=== PATIENT | male | born 1985 ===

== ENCOUNTER 2018-01-29 12:28 | Emergency (ER) | payer OTHER ==
[2018-01-29 12:31] VITALS: BP 131/81; PULSE 119; RESP 20; TEMP 98.4; O2SAT 99
--- NOTE | 2018-01-29 13:14 | ED PDOC ---
Lower Extremity Pain/Injury Time Seen by Provider: 01/29/18 12:49 Chief Complaint (Nursing): Lower Extremity Problem/Injury Chief Complaint (Provider): right ankle pain History Per: Patient History/Exam Limitations: no limitations Onset/Duration Of Symptoms: Hrs (2) Current Symptoms Are (Timing): Still Present Pain Scale Rating Of: 5 Additional Complaint(s): 32 yo ,m, no significant PMhx presents to ED c/o right ankle pain lateral side. Patient reports he was playing kickboxing at the gym, he was jumping and landed over right ankle and twisted it inward. Reports mild swelling, pain 5-6/10 intensity, no medication taking. He denies knee pain, back pain, dizziness, headache, head trauma, chest pain, SOB, cough, numbness. Patient reports he was able to bear weight on the right foot. - Knee Description Of Injury: Twisted Alleviating Factor(s): Ice Therapy, Elevation Past Medical History Vital Signs: Last Vital Signs Temp 98.4 F 01/29/18 12:29 Pulse 119 H 01/29/18 12:29 Resp 20 01/29/18 12:29 BP 131/81 01/29/18 12:29 Pulse Ox 99 01/29/18 12:29 - Medical History PMH: No Chronic Diseases - Surgical History Surgical History: No Surg Hx - Family History Family History: States: No Known Family Hx - Social History Alcohol: None Drugs: Denies - Home Medications Home Medications: Ambulatory Orders Medication Instructions Recorded Ibuprofen [Motrin] 600 mg PO TID 7 Days tab 01/29/18 - Allergies Allergies/Adverse Reactions: Allergies Allergy/AdvReac Type Severity Reaction Status Date / Time No Known Allergies Allergy Verified 01/29/18 12:29 Wells Criteria for PE - Wells Criteria for Pulmonary Embolism Clinical Signs and Symptoms of DVT: No P.E is #1 Diagnosis, or Equally Likely: No Heart Rate >100: Yes Immobilization at least 3 days;Surgery previous 4 weeks: No Previous, objectively diagnosed PE or DVT: No Hemoptysis: No Malignancy w/treatment within 6 months, or palliative: No Total Score: 1.5 Review of Systems Musculoskeletal: Positive for: Other (right ankle pain ) Physical Exam - Physical Exam Appears: Positive for: Well, No Acute Distress Head Exam: Positive for: ATRAUMATIC, NORMAL INSPECTION Skin: Positive for: Normal Color Neck: Positive for: Normal, Supple Cardiovascular/Chest: Positive for: Regular Rate, Rhythm, Tachycardia (HR on evaluation 96 b/min). Negative for: Murmur Respiratory: Positive for: Normal Breath Sounds. Negative for: Crackles, Rales , Rhonchi, Wheezing Gastrointestinal/Abdominal: Positive for: Soft. Negative for: Tenderness, Distended, Guarding, Rebound Back: Positive for: Normal Inspection. Negative for: L CVA Tenderness, R CVA Tenderness Extremity: Positive for: Tenderness (limited ROM for dorsiflexion of R foot.Td right ankle lateral side over talofibular tendon), Capillary Refill (<3 sec), Swelling (mild swelling lateral side ankle). Negative for: Pedal Edema, Calf Tenderness, Deformity DTR - Knee (R): 2+ DTR - Knee (L): 2+ Neurologic/Psych: Positive for: Alert, Oriented - ECG O2 Sat by Pulse Oximetry: 99 Medical Decision Making Medical Decision Makin:10 32 yo ,m, no significant PMhx evaluated for right ankle pain secondary to inward twist after jumping Impression Right ankle sprain Differential Right ankle fracture, metatarsal fracture, fibular fracture Plan Xr right ankle 3 view motrin 600 mg PO pepcid 20 mg Po Disposition - Clinical Impression Clinical Impression: Ankle sprain and strain - Disposition Referrals: Podiatry Clinic [Outside] - 01/31/18 Disposition Time: 14:16 Condition: STABLE Additional Instructions: Return if not better in 3 days. Prescriptions: Ibuprofen [Motrin] 600 mg PO TID 7 Days tab Instructions: Ankle Sprain Forms: [employer] (Armenian)
--- NOTE | 2018-01-29 15:30 | RAD ---
PROCEDURE: Right ankle dated 01/29/2018 HISTORY: Pain COMPARISON: No prior FINDINGS: BONES: No evidence of acute displaced fracture nor dislocation. The osseous structures appear intact. Small osteophyte seen arising from the inferior tip of the medial malleolus. Joint spaces however are preserved. Ankle mortise maintained. No significant soft tissue swelling JOINTS: Spaces are relatively preserved. No significant osteoarthritis. Ankle mortise maintained. Talar dome intact SOFT TISSUES: Normal. OTHER FINDINGS: None. IMPRESSION: No evidence of acute displaced fracture nor dislocation. . .
--- NOTE | 2018-01-29 20:47 | CP.PCM.CON ---
History of Present Illness - History of Present Illness History of Present Illness: Podiatry Consult Note - Dr. Cedillo 32 year old male patient unremarkable PMHx seen and evaluated in ED for right lateral ankle pain. Friend present at bedside. Patient reports at approximately 12:00 this afternoon, he was kickboxing and sustained an inversion ankle sprain when he jumped and landed incorrectly. Patient reports 5/10 pain on the outside of his ankle. Patient states that he is able to bear weight and ambulate on his RLE. Patient offers no other complaints. Denies N/V/F/D/C/SOB/calf pain. Review of Systems - Review of Systems All systems: reviewed and no additional remarkable complaints except (as per HPI ) Past Patient History - Past Social History Alcohol: None Drugs: Denies - PSYCHIATRIC Hx Substance Use: No - ANESTHESIA Hx Anesthesia: No Meds Home Medications: Home Medication List Medication Instructions Recorded Confirmed Type Ibuprofen [Motrin] 600 mg PO TID 7 Days tab 01/29/18 Rx Allergies/Adverse Reactions: Allergies Allergy/AdvReac Type Severity Reaction Status Date / Time No Known Allergies Allergy Verified 01/29/18 12:29 Physical Exam - Constitutional Appears: Well, Non-toxic, No Acute Distress - Extremities Exam Additional comments: RLE focused physical exam VASC: DP and PT pulses palpable 2/4. CFT <3 seconds to all digits x5. Temperature gradient cool to cool. Pedal hair growth present. Non-pitting edema noted on dorsolateral midfoot and lateral ankle. NEURO: Gross sensation intact. DERM: No open lesions noted. Ecchymosis noted to dorsolateral midfoot. ORTHO: Pain on palpation ATFL, EDB muscle. No pain on palpation CFL, PTFL, styloid process. Mild tenderness upon ankle joint ROM. Muscle strength 5/5 for all dorsiflexors, plantarflexors, inverters, and everters with pain upon dorsiflexion. - Neurological Exam Neurological exam: Alert, Oriented x3 - Psychiatric Exam Psychiatric exam: Normal Affect, Normal Mood Results - Vital Signs Recent Vital Signs: Last Vital Signs Temp 98.4 F 01/29/18 12:29 Pulse 119 H 01/29/18 12:29 Resp 20 01/29/18 12:29 BP 131/81 01/29/18 12:29 Pulse Ox 99 01/29/18 14:16 Assessment & Plan - Assessment and Plan (Free Text) Assessment: 32M unremarkable PMHx with right ankle sprain secondary to mechanical fall Plan: Patient seen and evaluated Discussed with attending, Dr. Cedillo VSS Right XR negative for acute fracture Posterior splint applied to RLE, patient to be NWB with the assistance of crutches RICE therapy Advised patient to keep dressing clean/dry/intact until follow up appointment in podiatry clinic with Dr. Cedillo on 02/02/18 Pain control per ED Stable per podiatry standpoint Thank you for the consult, please reconsult podiatry as needed
== END 2018-01-29 14:54 | disposition home or self-care (01) ==
LOC: H.ER 12:28
DX: S93.401A Sprain of unspecified ligament of right ankle, initial encounter (principal); X50.1XXA Overexertion from prolonged static or awkward postures, initial encounter; Y93.71 Activity, boxing; Y92.39 Other specified sports and athletic area as the place of occurrence of the external cause